=== PATIENT | female | born 1995 | race African-American/Black ===

== ENCOUNTER 2017-06-15 22:29 | Emergency (ER) | payer OTHER ==
--- NOTE | 2017-06-15 23:12 | ER Document Report ---
ED Medical Screen (RME) - General Chief Complaint: Abdominal Pain Stated Complaint: ABDOMINAL PAIN Time Seen by Provider: 06/15/17 23:09 Mode of Arrival: Ambulatory Information source: Patient Notes: 22-year-old female presents to ED for left lower quadrant pain 3 days. She states it is worse when she is walking. She was states she was able to do her ab exercises yesterday as well as jumping rope with no increase in pain. She states she is also had right chest pain that started after jumping broke yesterday. She has had back pain for 3 days that does not get worse with jumping rope and doing her exercises. She has a history of Graves' and Nichole's. Her last menstrual period was a couple days of spotting 2 weeks ago. She denies any nausea vomiting or diarrhea. She states she does not smoke or do drugs but she does drink about once a week. She states she was seen at the [facility] and they told her since her urine was negative that they did not need to check out her abdomen so she came to the ER here. I have greeted and performed a rapid initial assessment of this patient. A comprehensive ED assessment and evaluation of the patient, analysis of test results and completion of medical decision making process will be conducted by an additional ED providers. TRAVEL OUTSIDE OF THE [place] IN LAST 30 DAYS: No Past Medical History - Social History Chew tobacco use (# tins/day): No Frequency of alcohol use: None Drug Abuse: None Renal/ Medical History: Denies: Hx Peritoneal Dialysis Physical Exam - Vital signs Vitals: Temp Pulse Resp BP Pulse Ox 98.7 F 110 H 18 161/83 H 100 06/15/17 22:34 06/15/17 22:34 06/15/17 22:34 06/15/17 22:34 06/15/17 22:34 Course - Vital Signs Vital signs: Temp Pulse Resp BP Pulse Ox 98.7 F 110 H 18 161/83 H 100 06/15/17 22:34 06/15/17 22:34 06/15/17 22:34 06/15/17 22:34 06/15/17 22:34
[2017-06-15 23:59] LABS: ABSOLUTE BASOPHILS # (AUTO) 0.1 10^3/uL (0.0-0.2); ABSOLUTE EOSINOPHILS # (AUTO) 0.3 10^3/uL (0.0-0.6); ABSOLUTE LYMPHOCYTES (AUTO) 2.9 10^3/uL (0.5-4.7); ABSOLUTE NEUT (AUTO) 7.2 10^3/uL (1.7-8.2); EOSINOPHILS % (AUTO) 2.2 % (0-6); HEMATOCRIT 41.6 % (36.0-47.0); HEMOGLOBIN 13.9 g/dL (12.0-15.5); LYMPHOCYTES % (AUTO) 24.9 % (13-45); MEAN CORPUSCULAR HGB CONC 33.3 g/dL (32.0-36.0); MEAN CORPUSCULAR VOLUME 81 fl (80-97); PLATELET COUNT 311 10^3/uL (150-450); RED BLOOD COUNT 5.14 10^6/uL (3.72-5.28); RED CELL DISTRIBUTION WIDTH 12.8 % (11.5-14.0); SEGMENTED NEUTROPHILS % (AUTO) 62.9 % (42-78); TOTAL CELLS COUNTED % (AUTO) 100 %; WHITE BLOOD COUNT 11.5 10^3/uL (4.0-10.5)
[2017-06-16 00:11] LABS: APPEARANCE,URINE SLIGHTLY-CLOUDY; BILIRUBIN,URINE NEGATIVE (NEGATIVE); COLOR,URINE YELLOW; GLUCOSE, URINE NEGATIVE (NEGATIVE); KETONES,URINE 20 mg/dL (NEGATIVE); LEUKOCYTE ESTERASE,URINE NEGATIVE (NEGATIVE); NITRITE,URINE NEGATIVE (NEGATIVE); PROTEIN,URINE NEGATIVE (NEGATIVE); URINE SPECIFIC GRAVITY 1.015; UROBILINOGEN,URINE NEGATIVE mg/dL (<2.0)
[2017-06-16 00:21] LABS: ALANINE AMINOTRANSFERASE 48 U/L (9-52); ALBUMIN 4.4 g/dL (3.5-5.0); ALKALINE PHOSPHATASE 91 U/L (38-126); ANION GAP 10 (5-19); ASPARTATE AMINO TRANSFERASE 36 U/L (14-36); BILIRUBIN,DIRECT 0.1 mg/dL (0.0-0.4); BILIRUBIN,TOTAL 1.2 mg/dL (0.2-1.3); BLOOD UREA NITROGEN 12 mg/dL (7-20); CALCIUM 10.5 mg/dL (8.4-10.2); CARBON DIOXIDE 27 mmol/L (22-30); CHLORIDE 101 mmol/L (98-107); GLUCOSE 87 mg/dL (75-110); POTASSIUM 4.2 mmol/L (3.6-5.0); SODIUM 137.5 mmol/L (137-145); TOTAL PROTEIN 6.8 g/dL (6.3-8.2)
--- NOTE | 2017-06-16 00:47 | ER Document Report ---
ED General - General Chief Complaint: Abdominal Pain Stated Complaint: ABDOMINAL PAIN Time Seen by Provider: 06/15/17 23:09 Mode of Arrival: Ambulatory Notes: Patient is a 22-year-old female presents with complaint of pain over left lower quadrant. She says the pain is very pinpoint spot over left lower abdomen. She says the area is worse with certain movements. She says the pain initially started when she sneezed 2 days ago. She has had no vomiting. No diarrhea. No blood in her stool. No fevers. No abnormal vaginal discharge or bleeding. No other complaints at this time. She does have a Mirena. TRAVEL OUTSIDE OF THE [place] IN LAST 30 DAYS: No - Related Data Allergies/Adverse Reactions: No Known Allergies Allergy (Unverified 06/15/17 23:10) Past Medical History - General Information source: Patient - Social History Smoking Status: Never Smoker Chew tobacco use (# tins/day): No Frequency of alcohol use: None Drug Abuse: None Family History: Reviewed & Not Pertinent Patient has suicidal ideation: No Patient has homicidal ideation: No Renal/ Medical History: Denies: Hx Peritoneal Dialysis Review of Systems - Review of Systems Notes: My Normal Review Basic REVIEW OF SYSTEMS: CONSTITUTIONAL : Denies fever, chills, or sweats. Denies recent illness. EENT: Denies eye, ear, throat, or mouth pain or symptoms. Denies nasal or sinus congestion. RESPIRATORY: Denies cough, cold, or chest congestion. Denies shortness of breath, difficulty breathing, or wheezing. GASTROINTESTINAL: Left lower quadrant abdominal pain denies nausea, vomiting, or diarrhea. GENITOURINARY: Denies difficulty urinating, painful urination, burning, frequency, or blood in urine. FEMALE GENITOURINARY: Denies vaginal bleeding, abnormal or irregular periods. MUSCULOSKELETAL: Denies neck or back pain or joint pain or swelling. SKIN: Denies rash or skin lesions. NEUROLOGICAL: Denies altered mental status or loss of consciousness. Denies headache. Denies weakness or paralysis or loss of use of either side. Denies problems with gait or speech. Denies sensory or motor loss. ALL OTHER SYSTEMS REVIEWED AND NEGATIVE. Physical Exam - Vital signs Vitals: Temp Pulse Resp BP Pulse Ox 98.7 F 110 H 18 161/83 H 100 06/15/17 22:34 06/15/17 22:34 06/15/17 22:34 06/15/17 22:34 06/15/17 22:34 - Notes Notes: General Appearance: Well nourished, alert, cooperative, no acute distress, no obvious discomfort. Well-appearing. Vitals: reviewed, See vital signs table. Head: no swelling or tenderness to the head Eyes: PERRL, EOMI, Conjuctiva clear Lungs: No wheezing, No rales, No rhonci, No accessory muscle use, good air exchange bilaterally. Heart: Normal rate, Regular rythm, No murmur, no rub Abdomen: Normal BS, soft, No rigidity, patient's entire abdomen is nontender except for a small area that is about 1 cm circumference that is pinpoint over the left lower quadrant abdomen. This varies localized small areas only or tenderness. I did push very deeply over the area. I do not feel any evidence of hernia. Patient's abdomen is very benign on exam. Extremities: strength 5/5 in all extremities, good pulses in all extremities, no swelling or tenderness in the extremities, no edema. Skin: warm, dry, appropriate color, no rash Neuro: speech clear, oriented x 3, normal affect, responds appropriately to questions. Course - Re-evaluation Re-evalutation: 06/16/17 05:35 Patient clear looks very well. I suspect that her pain is due to a strained muscle in the abdomen. The pain is very pinpoint over a very small localized area. I do not feel any evidence of hernia on palpation. I informed patient to take Tylenol and/or Motrin for pain. I informed her to return to the ER immediately if she gets worsening pain, feels a knot over the area, has fevers, or has vomiting. Patient agrees with plan and will be discharged home. Dictation of this chart was performed using voice recognition software; therefore, there may be some unintended grammatical errors. - Vital Signs Vital signs: Temp Pulse Resp BP Pulse Ox 98.7 F 104 H 18 138/72 H 97 06/15/17 22:34 06/16/17 01:43 06/15/17 22:34 06/16/17 01:43 06/16/17 01:43 - Laboratory Result Diagrams: 06/15/17 23:44 06/15/17 23:44 Laboratory results interpreted by me: 02/10/2506/15/17 06/15/17 23:44 23:44 23:44 WBC 11.5 H Calcium 10.5 H Urine Ketones 20 H Discharge - Discharge Clinical Impression: Abdominal pain Qualifiers: Abdominal location: left lower quadrant Qualified Code(s): R10.32 - Left lower quadrant pain Condition: Good Disposition: HOME, SELF-CARE Additional Instructions: I suspect your pain is related to a injury to the abdominal wall muscle. Please try not to do any vigorous exercises over the next few days. Please follow up with a doctor in 2-3 days for revaluation. Please return to the ER immediately if you develop worsening pain, fever, vomiting, or feel a knot or bump when you push over the abdomen.
[2017-06-16 01:44] VITALS: BP 138/72
== END 2017-06-16 01:44 | disposition home or self-care (01) ==
LOC: ER 22:29
DX: R10.32 Left lower quadrant pain (principal)
CPT/HCPCS: 36415; 80053; 81001; 84703; 85025; 99284